=== PATIENT | female | born 1965 | race Caucasian/White ===

== ENCOUNTER → 2016-11-16 | Outpatient (CLI) | payer OTHER ==
--- NOTE | 2016-11-16 15:18 | MG ---
Examination: Bilateral screening mammogram. Clinical history: Routine screening. Technique: Digital CC and MLO views of both breasts were obtained. Computer aided detection analysis was performed and used during the interpretation. Comparison: None available. Findings: The breasts are composed of scattered fibroglandular densities. Benign-appearing calcifications are noted in the breasts bilaterally. There is a 1.5 cm density present in the upper outer aspect of the right breast in the middle depth. Additional imaging evaluation is recommended, with spot compression magnification views in the CC a nd MLO projections, a lateral view of the right breast and a right breast ultrasound. No suspicious mass, area of architectural distortion or suspicious cluster of microcalcifications is noted in the left breast. Impression: 1. Density in the right breast, as described above. BI-RADS category 0 (ZERO) - ASSESSMENT INCOMPLETE; ADDITIONAL IMAGING IS NEEDED. Recommend immediate recall for additional imaging evaluation, as described above. Diagnostic CAD was utilized and reviewed. * 0 (ZERO) - ASSESSMENT INCOMPLETE; ADDITIONAL IMAGING IS NEEDED. * 0C - ASSESSMENT INCOMPLETE, NEEDS ADDITIONAL IMAGING EVALUATION AND/OR PRIOR MAMMOGRAMS FOR COMPAR COLT. * 1/1 (ONE) - NEGATIVE. * 2/II (TWO) - BENIGN FINDINGS. * 3/III (THREE) - PROBABLY BENIGN FINDING; SHORT INTERVAL FOLLOW-UP SUGGESTED. * 4/IV (FOUR) - SUSPICIOUS ABNORMALITY; BIOPSY SHOULD BE CONSIDERED. * 5/V - HIGHLY SUSPICIOUS OF MALIGNANCY; BIOPSY SHOULD BE PERFORMED. * 6/IV - KNOWN BIOPSY PROVEN MALIGNANCY-APPROPRIATE ACTION SHOULD BE TAKEN. A NEGATIVE X-RAY REPORT SHOULD NOT DELAY BIOPSY IF A DOMINANT OR CLINICALLY SUSPICIOUS MASS IS PRESENT; 4 TO 8 PERCENT OF CANCERS ARE NOT IDENTIFIED BY X-RAY. A NEGATIVE REPORT MAY REINFORCE THE CLINICAL IMPRESSION. ADENOSIS AND DENSE BREASTS MAY OBSCURE AN UNDERLYING NEOPLASM. Reported By:
== END ==
LOC: RAD 09:31
PROVIDERS: ATTEND General Practice
DX: Z12.31 Encounter for screening mammogram for malignant neoplasm of breast (principal)
CPT/HCPCS: 77067

== ENCOUNTER → 2016-12-03 | Outpatient (CLI) | payer OTHER ==
--- NOTE | 2016-12-03 15:51 | MG ---
Examination: Unilateral right diagnostic mammogram and right breast ultrasound. Clinical history: Abnormal screening mammogram. Technique: Additional digital images of the right breast were obtained. Targeted right breast ultras ound was also obtained evaluating the upper outer aspect of the right breast. Comparison: Screening mammogram dated 11/16/2016. No older examinations are available for comparison. Findings: The right breast is composed of scattered fibroglandular densities. A benign-appearing calcification is present in the right breast. There is an approximately 1.5 cm oval mass, seen in the upper outer aspect of the right breast in th e anterior to middle depth, which is partially obscured by surrounding fibroglandular tissue. Targeted right breast ultrasound evaluating the upper outer aspect of the right breast reveals a 1.4 x 1.3 x 0.5 cm solid appearing circumscribed hypoechoic mass present at the 10 o'clock position, co rrelating with findings on the mammogram, likely representing a benign fibroadenoma. Management opti ons include a six-month followup right diagnostic mammogram and right breast ultrasound, or an ultra sound-guided biopsy of the lesion. Impression: 1. Probably benign fibroadenoma at the 10 o'clock position in the right breast, as described above. BI-RADS category 3/III (THREE) - PROBABLY BENIGN FINDING; SHORT INTERVAL FOLLOW-UP SUGGESTED. The Recommend a 6 month followup right diagnostic mammogram and right breast ultrasound to ensure stabil ity of the finding. Alternatively, an ultrasound-guided biopsy of this lesion could be obtained. Diagnostic CAD was utilized and reviewed. * 0 (ZERO) - ASSESSMENT INCOMPLETE; ADDITIONAL IMAGING IS NEEDED. * 0C - ASSESSMENT INCOMPLETE, NEEDS ADDITIONAL IMAGING EVALUATION AND/OR PRIOR MAMMOGRAMS FOR COMPAR COLT. * 1/1 (ONE) - NEGATIVE. * 2/II (TWO) - BENIGN FINDINGS. * 3/III (THREE) - PROBABLY BENIGN FINDING; SHORT INTERVAL FOLLOW-UP SUGGESTED. * 4/IV (FOUR) - SUSPICIOUS ABNORMALITY; BIOPSY SHOULD BE CONSIDERED. * 5/V - HIGHLY SUSPICIOUS OF MALIGNANCY; BIOPSY SHOULD BE PERFORMED. * 6/IV - KNOWN BIOPSY PROVEN MALIGNANCY-APPROPRIATE ACTION SHOULD BE TAKEN. A NEGATIVE X-RAY REPORT SHOULD NOT DELAY BIOPSY IF A DOMINANT OR CLINICALLY SUSPICIOUS MASS IS PRESENT; 4 TO 8 PERCENT OF CANCERS ARE NOT IDENTIFIED BY X-RAY. A NEGATIVE REPORT MAY REINFORCE THE CLINICAL IMPRESSION. ADENOSIS AND DENSE BREASTS MAY OBSCURE AN UNDERLYING NEOPLASM. Reported By:
== END | disposition home or self-care (01) ==
LOC: RAD 13:23
PROVIDERS: ATTEND General Practice
DX: R92.2 Inconclusive mammogram (principal)
CPT/HCPCS: 76642; 77065